=== PATIENT | male | born 1965 | race Caucasian/White ===

== ENCOUNTER 2022-02-14 21:22 | Emergency (ER) | payer OTHER ==
[~2022-02-14] VITALS: Ht 170.2 cm; Wt 71.7 kg
--- NOTE | 2022-02-14 22:23 | NUR ---
[id number] FROM HOME C/O N/V AND PAIN S/O MAXILLARY ANTROSTOMY THIS AM. PT AWAKE AND ALERT X4 BREATHING UNLABORED AND AIRWAY MAINTAINED, NO GROSS EPISTAXIS NOTED. PT PLACED ON MONITOR AND V/S WNL.
[2022-02-14] MEDS ORDERED: ONDANSETRON HCL/PF 4 MG/2 ML VIAL ONE (22:24)
[2022-02-14] MEDS ORDERED: ONDANSETRON HCL/PF 4 MG/2 ML VIAL IVP ONE (22:30)
[2022-02-14] MEDS ORDERED: IV NS 0.9% 1,000 ML BAG IV ONE (22:30)
--- NOTE | 2022-02-14 22:35 | NUR ---
20G IV ESTABLISHED AT [facility]. BLOOD DRAWN AND SENT TO LAB.
[2022-02-14] MEDS ORDERED: MORPHINE SULFATE INJ 2 MG/ML DISP.SYRIN ONE (22:39)
[2022-02-14] MEDS ORDERED: MORPHINE SULFATE INJ 2 MG/ML DISP.SYRIN IV ONE (23:00)
[2022-02-14 23:06] LABS: BASOPHILS % (AUTO) 0.1 % (0.0-2.0); HEMATOCRIT 46 % (39-51); HEMOGLOBIN 15.6 g/dL (13.5-17.5); LYMPHOCYTES # (AUTO) 1.2 K/uL (0.8-4.8); LYMPHOCYTES % (AUTO) 7.9 % (20.0-44.0); MEAN CORPUSCULAR HGB CONC 34 g/dl (31.0-36.0); MEAN CORPUSCULAR VOLUME 88 fL (80-96); MONOCYTES # (AUTO) 0.8 K/uL (0.1-1.30); MONOCYTES % (AUTO) 5.3 % (2.0-12.0); NEUTROPHILS # (AUTO) 12.8 K/uL (1.8-8.9); NEUTROPHILS % (AUTO) 86.7 % (43.0-81.0); PLATELET COUNT (AUTO) 286 K/uL (150-450); RED BLOOD CELL COUNT(AUTO) 5.18 MIL/uL (4.5-6.0); WHITE BLOOD COUNT (AUTO) 14.8 K/uL (4.3-11.0)
[2022-02-14 23:18] LABS: CALCIUM, SERUM 9.4 mg/dL (8.5-10.1); CREATININE 1.4 mg/dL (0.6-1.3); POTASSIUM 3.9 mmol/L (3.5-5.1)
[2022-02-14 23:22] LABS: ALBUMIN 4.2 g/dL (3.4-5.0); BILIRUBIN,DIRECT 0.2 mg/dL (0.0-0.2); BILIRUBIN,TOTAL 0.9 mg/dL (0.2-1.0); TOTAL PROTEIN, SERUM 7.9 g/dL (6.4-8.2)
[2022-02-14] MEDS ORDERED: HYDROMORPHONE 1 MG/1 ML DISP.SYRIN ONE (23:40)
[2022-02-15] MEDS ORDERED: IV NS 0.9% 1,000 ML BAG IV ONE
[2022-02-15] MEDS ORDERED: HYDROMORPHONE 1 MG/1 ML DISP.SYRIN IV ONE
[2022-02-15] MEDS ORDERED: ONDANSETRON HCL/PF 4 MG/2 ML VIAL ONE (00:59)
[2022-02-15] MEDS ORDERED: ONDANSETRON HCL/PF - ER 4 MG/2 ML VIAL IV ONE (01:00)
[2022-02-15] MEDS ORDERED: TRAM50TA2 PO (02:34)
[2022-02-15] MEDS ORDERED: ONDA4TAB5 PO (02:34)
--- NOTE | 2022-02-15 02:48 | NUR ---
IPatient discharged to home in stable condition. Written and verbal after care instructions given. Patient verbalizes understanding of instruction.IV removed. Catheter intact and site benign. Pressure and 4x4 applied to site. No bleeding noted.
[2022-02-15 02:49] VITALS: BP 131/73
== END 2022-02-15 02:52 | disposition home or self-care (01) ==
LOC: ER 21:24
DX: R11.2 Nausea with vomiting, unspecified (principal); G89.18 Other acute postprocedural pain; E86.0 Dehydration; Z88.8 Allergy status to other drugs, medicaments and biological substances
CPT/HCPCS: 99284; 96374; 96361; 96375; 85025; 80048; 83690; 80076; 36415; 96376; J2405 ×2; J7030 ×2; J2270; J1170